=== PATIENT | female | born 1970 | race African-American/Black ===

== ENCOUNTER 2020-09-09 15:01 | Emergency (ER) | payer MEDICAID ==
[~2020-09-09] VITALS: Ht 157.5 cm; Wt 53.0 kg
[2020-09-09 15:04] VITALS: BP 153/92
[2020-09-09] MEDS ORDERED: LISI40TA13 MT (15:24)
[2020-09-09] MEDS ORDERED: AMLO10TA80 MT (15:24)
[2020-09-09] MEDS ORDERED: METO-411 MT (15:24)
[2020-09-09] MEDS ORDERED: SIMV-43 MT (15:24)
[2020-09-09] MEDS ORDERED: CARB200C7 MT (15:24)
== END 2020-09-09 15:35 | disposition home or self-care (01) ==
LOC: ER 15:01
DX: Z76.0 Encounter for issue of repeat prescription (principal); G40.909 Epilepsy, unspecified, not intractable, without status epilepticus; I10 Essential (primary) hypertension; E78.5 Hyperlipidemia, unspecified
CPT/HCPCS: 99282; 99283

== ENCOUNTER 2020-10-26 11:47 | Emergency (ER) | payer MEDICAID ==
[~2020-10-26] VITALS: Ht 160 cm; Wt 49.7 kg
[~2020-10-26 11:47] MED LIST: AMLO10TA80 MT; CARB200C7 MT; LISI40TA13 MT; METO-411 MT; SIMV-43 MT
[2020-10-26] MEDS ORDERED: CARB200C7 MT (12:52)
[2020-10-26] MEDS ORDERED: AMLO10TA80 MT (12:52)
[2020-10-26] MEDS ORDERED: METO-411 MT (12:52)
[2020-10-26] MEDS ORDERED: SIMV-43 MT (12:52)
[2020-10-26] MEDS ORDERED: LISI40TA13 MT (12:52)
[2020-10-26 13:22] VITALS: BP 157/95
== END 2020-10-26 13:23 | disposition home or self-care (01) ==
LOC: ER 12:19
DX: Z76.0 Encounter for issue of repeat prescription (principal); G40.909 Epilepsy, unspecified, not intractable, without status epilepticus; I10 Essential (primary) hypertension; E78.00 Pure hypercholesterolemia, unspecified; Z86.73 Personal history of transient ischemic attack (TIA), and cerebral infarction without residual deficits
CPT/HCPCS: 99283

== ENCOUNTER 2021-07-30 17:09 | Emergency (ER) | payer MEDICAID ==
[~2021-07-30] VITALS: Ht 157.5 cm; Wt 49.0 kg
[2021-07-30] MEDS ORDERED: AMLO10TA4 MT (18:37)
[2021-07-30] MEDS ORDERED: SIMV-43 MT (18:37)
[2021-07-30] MEDS ORDERED: LISI10TA26 MT (18:37)
[2021-07-30] MEDS ORDERED: METO100T16 PO (18:37)
[2021-07-30] MEDS ORDERED: CARB200T6 MT (18:37)
[2021-07-30 19:30] VITALS: BP 123/91
== END 2021-07-30 19:30 | disposition home or self-care (01) ==
LOC: ER 17:09
DX: Z76.0 Encounter for issue of repeat prescription (principal); G40.909 Epilepsy, unspecified, not intractable, without status epilepticus; I10 Essential (primary) hypertension; E78.00 Pure hypercholesterolemia, unspecified
CPT/HCPCS: 99283

== ENCOUNTER 2023-02-13 16:43 | Emergency (ER) | payer MEDICAID ==
[~2023-02-13] VITALS: Ht 157.5 cm; Wt 45.0 kg
[~2023-02-13 16:43] MED LIST changes: +AMLO10TA4 MT; +CARB200T6 MT; +LISI10TA26 MT; +METO100T16 PO
[2023-02-13 16:48] VITALS: BP 158/87; PULSE 70; RESP 20; TEMP 98.3; O2SAT 100
[2023-02-13] MEDS ORDERED: CARB200C7 MT ×2 (16:58)
[2023-02-13] MEDS ORDERED: CARB200T6 MT (17:13)
== END 2023-02-13 20:14 | disposition home or self-care (01) ==
LOC: ER 16:43
DX: Z76.0 Encounter for issue of repeat prescription (principal); E78.00 Pure hypercholesterolemia, unspecified; I10 Essential (primary) hypertension; Z86.73 Personal history of transient ischemic attack (TIA), and cerebral infarction without residual deficits; Z79.899 Other long term (current) drug therapy
CPT/HCPCS: 99283

== ENCOUNTER 2024-05-19 13:19 | Emergency (ER) | payer OTHER, MEDICAID ==
[2024-05-19] MEDS ORDERED: CARB200T6 MT (13:30)
== END 2024-05-19 13:49 | disposition home or self-care (01) ==
LOC: ER 13:19
DX: R56.9 Unspecified convulsions (principal); I10 Essential (primary) hypertension; E78.00 Pure hypercholesterolemia, unspecified; Z76.0 Encounter for issue of repeat prescription; Z91.041 Radiographic dye allergy status; Z86.73 Personal history of transient ischemic attack (TIA), and cerebral infarction without residual deficits; Z79.899 Other long term (current) drug therapy
CPT/HCPCS: 99281

== ENCOUNTER 2024-08-17 18:55 | Emergency (ER) | payer MEDICAID, OTHER ==
[~2024-08-17] VITALS: Ht 167.6 cm; Wt 58.0 kg
[2024-08-17 19:01] VITALS: BP 153/96; PULSE 89; RESP 18; TEMP 36.9; O2SAT 97
[2024-08-17] MEDS ORDERED: CARB200T MT (19:29)
== END 2024-08-17 20:07 | disposition home or self-care (01) ==
LOC: ER 18:55
DX: R56.9 Unspecified convulsions (principal); I10 Essential (primary) hypertension; E78.00 Pure hypercholesterolemia, unspecified; Z76.0 Encounter for issue of repeat prescription; Z79.899 Other long term (current) drug therapy; Z86.73 Personal history of transient ischemic attack (TIA), and cerebral infarction without residual deficits; Z91.041 Radiographic dye allergy status
CPT/HCPCS: 99281

== ENCOUNTER 2024-11-28 12:25 | Emergency (ER) | payer OTHER ==
[~2024-11-28] VITALS: Ht 157.5 cm; Wt 51.5 kg
[~2024-11-28 12:25] MED LIST changes: +AMLO-905 MT; -AMLO10TA4 MT; +CARB200T MT
[2024-11-28 12:42] VITALS: O2SAT 99
[2024-11-28 14:35] VITALS: BP 188/99; PULSE 60; RESP 18; TEMP 36.6; O2SAT 96
== END 2024-11-28 16:16 | disposition home or self-care (01) ==
LOC: ER 12:25
DX: R56.9 Unspecified convulsions (principal); E78.00 Pure hypercholesterolemia, unspecified; I10 Essential (primary) hypertension; Z76.0 Encounter for issue of repeat prescription; Z86.73 Personal history of transient ischemic attack (TIA), and cerebral infarction without residual deficits; Z79.899 Other long term (current) drug therapy; Z91.041 Radiographic dye allergy status
CPT/HCPCS: 99281

== ENCOUNTER 2025-03-29 13:41 | Emergency (ER) | payer OTHER ==
[~2025-03-29] VITALS: Ht 167.6 cm; Wt 70.0 kg
[~2025-03-29 13:41] MED LIST changes: +CARB-214 MT; -CARB200T6 MT; -LISI40TA13 MT; +LISI40TA21 MT
[2025-03-29 13:46] VITALS: BP 132/86; PULSE 66; RESP 16; TEMP 36.7; O2SAT 100
== END 2025-03-29 15:29 | disposition home or self-care (01) ==
LOC: ER 13:46
DX: R56.9 Unspecified convulsions (principal); I10 Essential (primary) hypertension; E78.00 Pure hypercholesterolemia, unspecified; Z79.899 Other long term (current) drug therapy; Z76.0 Encounter for issue of repeat prescription; Z91.041 Radiographic dye allergy status; Z86.73 Personal history of transient ischemic attack (TIA), and cerebral infarction without residual deficits; Z98.890 Other specified postprocedural states
CPT/HCPCS: 99281; 99282

== ENCOUNTER 2025-04-01 19:09 | Emergency (ER) | payer OTHER ==
[~2025-04-01] VITALS: Ht 157.5 cm; Wt 59.0 kg
[2025-04-01 19:25] VITALS: O2SAT 99
[2025-04-01 19:54] VITALS: BP 152/80; PULSE 78; RESP 14; TEMP 37.1; O2SAT 99
== END 2025-04-01 20:02 | disposition home or self-care (01) ==
LOC: ER 19:09
DX: R56.9 Unspecified convulsions (principal); E78.00 Pure hypercholesterolemia, unspecified; I10 Essential (primary) hypertension; Z76.0 Encounter for issue of repeat prescription; Z86.73 Personal history of transient ischemic attack (TIA), and cerebral infarction without residual deficits; Z79.899 Other long term (current) drug therapy; Z91.041 Radiographic dye allergy status
CPT/HCPCS: 99281; 99282